=== PATIENT | female | born 1975 | race Caucasian/White ===

== ENCOUNTER 2017-12-22 23:42 | Emergency (ER) | payer SELFPAY ==
[2017-12-22 23:48] VITALS: RESP 16; TEMP 97.7; O2SAT 98
--- NOTE | 2017-12-23 01:03 | EDPHY ---
H & P Stated Complaint: Pt fell and onto her left shoulder HPI/ROS: HPI CHIEF COMPLAINT: Fell left shoulder HISTORY OF PRESENT ILLNESS: Patient very pleasant 42-year-old female, she presents emergency room after she slipped on ice earlier today around 1:22 p.m.. She fell directly on her left lateral shoulder. She since then has had ongoing pain and swelling. Every time she moves her left shoulder she gets discomfort. She denies any chest pain or shortness of breath. Denies elbow pain or wrist pain. Denies focal numbness or tingling or weakness. Pain is located to the left lateral shoulder 6/10 currently. Denies any other areas of trauma. Past Medical History: Denies medical history Past Surgical History: Social History: Denies drugs alcohol tobacco. Family History: Head noncontributory ROS REVIEW OF SYSTEMS: A comprehensive 10 point review of systems is otherwise negative aside from elements mentioned in the history of present illness. Exam Constitutional triage nursing summary reviewed, vital signs reviewed, awake/ alert. Eyes normal conjunctivae and sclera, EOMI, PERRLA. HENT normal inspection, atraumatic, moist mucus membranes, no epistaxis, neck supple/ no meningismus, no raccoon eyes. Respiratory clear to auscultation bilaterally, normal breath sounds, no respiratory distress, no wheezing. Cardiovascular rate normal, regular rhythm, no murmur, no edema, distal pulses normal. Gastrointestinal soft, non-tender, no rebound, no guarding, normal bowel sounds, no distension, no pulsatile mass. Genitourinary no CVA tenderness. Musculoskeletal left upper extremity: Neurovascular intact good cap refill good pulse. Good maintenance job titles strength. Full range of motion of the wrist hand and elbow. With any range of motion of left shoulder she has great discomfort. There is swelling noted to the left shoulder, axillary nerve is intact. She is focally tender over the left lateral shoulder. no midline vertebral tenderness , full range of motion, no calf swelling, no tenderness of extremities, no meningismus, good pulses, neurovascularly intact. Skin pink, warm, & dry, no rash, skin atraumatic. Neurologic awake, alert and oriented x 3, AAOx3, moves all 4 extremities equally, motor intact, sensory intact, CN II-XII intact, normal cerebellar, normal vision, normal speech. Psychiatric normal mood/affect. Heme/Lymph/Immune no lymphadenopathy. Differential Diagnosis: Includes but is not limited to in a particular order shoulder contusion, shoulder fracture, soft tissue injury, bony contusion, humerus fracture, rotator cuff injury, dislocation Medical Decision Making: Plan for this patient ibuprofen 800 mg for pain control mild, Polo for severe pain, ice pack and sling, x-ray of the left shoulder. Re-evaluation: 0158: Patient x-ray left shoulder is unremarkable for fracture or malalignment. There is soft tissue swelling laterally over the left shoulder. Patient here in emergency room is been placed in a sling she received 800 mg of ibuprofen and Polo for pain control. As well as ice pack. She is distally neurovascular intact with good cap refill good radial pulse. She has axillary nerve intact but pain with range of motion of the left shoulder. Sensation is intact. I do recommend she ice her shoulder for the next 24-48 hours. Pain medicine as prescribed. Follow up with Orthopedics over the next 3-5 days if continues to have pain she understands. Source: Patient - Personal History LMP (Females 10-55): 15-21 Days Ago Current Tetanus/Diphtheria Vaccine: Yes Current Tetanus Diphtheria and Acellular Pertussis (TDAP): Yes - Medical/Surgical History Hx Asthma: No Hx Chronic Respiratory Disease: No Hx Diabetes: No Hx Cardiac Disease: No Hx Renal Disease: No Hx Cirrhosis: No Hx Alcoholism: No Hx HIV/AIDS: No Hx Splenectomy or Spleen Trauma: No Other PMH: x2, heart murmur - Social History Smoking Status: Never smoked Constitutional: Initial Vital Signs Temperature (C) 36.5 C 12/22/17 23:46 Heart Rate 99 12/22/17 23:46 Respiratory Rate 16 12/22/17 23:46 Blood Pressure 143/93 H 12/22/17 23:46 O2 Sat (%) 98 12/22/17 23:46 O2 Delivery Mode Room Air Allergies/Adverse Reactions: Penicillins Allergy (Verified 12/22/17 23:49) Home Medications: Medication Instructions Recorded NO HOME MEDICATIONS 04/22/11 Hydrocodone/APAP 5/325 [Polo 1 - 2 tab PO Q4H PRN #10 tab 12/23/17 5/325] Medical Decision Making - Data Points Medications Given: Discontinued Medications Hydrocodone Bitart/Acetaminophen (Polo 5/325mg Prepack#6) 1 btl TAKEHOME EDNOW ONE Stop: 12/23/17 01:13 Last Admin: 12/23/17 01:32 Dose: 1 btl Hydrocodone Bitart/Acetaminophen (Polo 5/325) 1 tab PO EDNOW ONE Stop: 12/23/17 01:13 Last Admin: 12/23/17 01:32 Dose: 1 tab Ibuprofen (Motrin) 800 mg PO EDNOW ONE Stop: 12/23/17 01:13 Last Admin: 12/23/17 01:32 Dose: 800 mg Departure - Departure Disposition: Home, Routine, Self-Care Clinical Impression: Shoulder contusion Qualifiers: Encounter type: initial encounter Laterality: left Qualified Code(s): S40.012A - Contusion of left shoulder, initial encounter Condition: Good Instructions: Hydrocodone/Acetaminophen (By mouth), Shoulder Sprain (ED), Arthralgia (ED) Additional Instructions: 1. Ice your shoulder. 2. Stay in your sling for comfort. 3. Follow up with Orthopedics. 4. Take ibuprofen for mild pain. 5. Polo for severe pain. 6. Return emergency room if you have worsening symptoms questions or concerns. Referrals: NONE *PRIMARY CARE P,. [Primary Care Provider] - As per Instructions Guillermo Feng MD [Medical Doctor] - As per Instructions Prescriptions: Hydrocodone/APAP 5/325 [Polo 5/325] 1 - 2 tab PO Q4H PRN #10 tab PRN Reason: Pain, Moderate
[2017-12-23] MEDS ORDERED: IBUPROFEN 800 MG TAB PO ONE (01:12)
[2017-12-23] MEDS ORDERED: HYDROCOD/APAP 5/325 PREPACK#6 BTL TAKEHOME ONE (01:12)
[2017-12-23] MEDS ORDERED: HYDROCODONE/APAP 5/325 TAB PO ONE (01:12)
[2017-12-23 02:19] VITALS: BP 141/79; PULSE 77
== END 2017-12-23 02:19 | disposition home or self-care (01) ==
DX: S40.012A Contusion of left shoulder, initial encounter (principal); W00.0XXA Fall on same level due to ice and snow, initial encounter
CPT/HCPCS: A4565